=== PATIENT | male | born 1950 | race African-American/Black ===

== ENCOUNTER 2021-10-21 08:12 | Emergency (ER) | payer MEDICARE, MEDICAID ==
[2021-10-21 18:12] LABS: SARS-CoV-2 PCR by NAA DETECTED (NotDetected)
== END 2021-10-21 09:48 | disposition home or self-care (01) ==
LOC: ERS 08:12
DX: U07.1 COVID-19 (principal); I10 Essential (primary) hypertension; E11.9 Type 2 diabetes mellitus without complications; J44.9 Chronic obstructive pulmonary disease, unspecified; F17.210 Nicotine dependence, cigarettes, uncomplicated; Z79.84 Long term (current) use of oral hypoglycemic drugs; Z79.899 Other long term (current) drug therapy
CPT/HCPCS: U0003; U0005; 99283